=== PATIENT | male | born 1995 ===

== ENCOUNTER 2020-07-26 14:29 | Emergency (ER) | payer OTHER ==
[~2020-07-26] VITALS: Ht 170.2 cm; Wt 81.6 kg
== END 2020-07-26 18:26 | disposition home or self-care (01) ==
LOC: ER 14:29
DX: M25.572 Pain in left ankle and joints of left foot (principal)

== ENCOUNTER 2022-01-11 18:44 | Emergency (ER) | payer OTHER ==
[~2022-01-11] VITALS: Ht 170.2 cm; Wt 85.7 kg
[2022-01-11] MEDS ORDERED: ZYRTEC10 M3 PO (22:44)
== END 2022-01-11 22:51 | disposition left against medical advice (07) ==
LOC: ER 18:44
DX: J06.9 Acute upper respiratory infection, unspecified (principal); R51.9 Headache, unspecified; Z20.822 Contact with and (suspected) exposure to COVID-19; Z91.013 Allergy to seafood

== ENCOUNTER 2022-06-21 12:13 | Outpatient (CLI) | payer OTHER ==
[~2022-06-21 12:13] MED LIST: ZYRTEC10 M3 PO
== END 2022-06-21 12:16 | disposition home or self-care (01) ==
LOC: LAB 12:13
PROVIDERS: ATTEND Obstetrics & Gynecology
DX: Z20.828 Contact with and (suspected) exposure to other viral communicable diseases (principal); Z20.818 Contact with and (suspected) exposure to other bacterial communicable diseases